=== PATIENT | female | born 1970 | race Two or more races ===

== ENCOUNTER 2016-07-11 06:30 | Emergency (ER) | payer BC, OTHER ==
[2016-07-11 06:48] VITALS: TEMP 97.1; BMI 30.9
[2016-07-11] MEDS ORDERED: methylPREDNISolone NA SUCC 125 MG/2 ML VIAL ONE ×2 (06:53)
[2016-07-11] MEDS ORDERED: methylPREDNISolone NA SUCC 125 MG/2 ML VIAL IVPB ONE (07:05)
--- NOTE | 2016-07-11 07:22 | PDOC ---
History of Present Illness - General Chief Complaint: Allergic Reaction Stated Complaint: ALLERGIC REACTION Time Seen by Provider: 07/11/16 07:02 History Source: Parent(s) Exam Limitations: No Limitations - History of Present Illness Initial Comments: This is a 46 yo F with no PMH who presents with angioedema or upper and lower lips x 5 hr. She states that she woke up at 2 am and noticed swollen L corner or her bottom lip, for which she took PO benadryl and resumed sleep. When she woke up this morning both her lips were diffusely edematous but not painful or itchy. There was no associated rash. She denies dysphagia, difficulty breathing , throat or tongue swelling, wheezing, change in voice, stridor. A few years ago she experienced tongue edema with no clear inciting factor. She has no known allergies and has been tested at an airways control specialist recently. She started using a new facial oil "Tanamu" 2 days ago. She has not eaten any new foods, experienced insect bites, taken new medication used any other new products recently. Her only daily med is an herbal supplement containing milk thistle, globe artichoke, turmeric and choline which shes taken for 2 mo. She denies h/a, dizziness, sob, chest pain, palpitations, n/v, and pain, diarrhea, dysuria. 07/11/16 07:28 07/11/16 08:05 Timing/Duration: 4-6 hours Severity: mild Associated Symptoms: reports: denies symptoms, other (no dysphagia, no tongue edema, no sob, no wheeze). denies: chest pain, cough Aspirin Received prior to arrival: No: no aspirin today, unknown, 81 mg x 1, 81 mg x 2, 81 mg x 3, 81 mg x 4, 325 mg x 1, provided at home, provided by EMS, provided by ED [facility] Contraindications(Core Measure): No: Allergy, Other, Active Blding w/i 24 hrs., Plavix, Receiving Warfarin Beta Don Contraindications(Core Measure): No: Not Prescribed, Allergy, Bradycardia (HR <60bpm), Advanced Heart Block, Pacemaker, Other Beta Don Given by EMS(Core Measure): No Beta Don Taken at Home(Core Measure): No Beta Don Not Indicated at this Time(Core Measure): No Past History - Travel Traveled outside of the country in the last 30 days: No Close contact w/someone who was outside of country & ill: No - Past Medical History Allergies/Adverse Reactions: Allergies Allergy/AdvReac Type Severity Reaction Status Date / Time No Known Allergies Allergy Verified 07/11/16 06:46 Home Medications: Ambulatory Orders Diphenhydramine [Benadryl -] 50 mg PO DAILY #4 capsule 07/11/16 Famotidine [Pepcid] 20 mg PO DAILY #4 tablet 07/11/16 Prednisone [Deltasone -] 40 mg PO DAILY #8 tablet 07/11/16 Anemia: No Asthma: No Cancer: No Cardiac Disorders: No Hx Myocardial Infarction: No CVA: No COPD: No CHF: No DVT: No Dementia: No Diabetes: No Dialysis: No GI Disorders: No Disorders: No HTN: No Hypercholesterolemia: No HIV: No Kidney Stones: No Liver Disease: No Psychiatric Problems: No Suicide Attempt (Hx): No Seizures: No Thyroid Disease: Yes (thyromegaly, normal prior tft) Lung CA: No - Surgical History Cholecystectomy: Yes (2o yrs ago) Orthopedic Surgery: Yes (bunion tye) Other Surgical History: 07/11/16 07:26 c section - Family Disease History Family Disease History: Other: Mother (thyroid disease ) - Psycho/Social/Smoking Cessation Hx Anxiety: No Suicidal Ideation: No Smoking Status: No Smoking History: Never smoked Have you smoked in the past 12 months: No Information on smoking cessation initiated: No Hx Alcohol Use: No Drug/Substance Use Hx: No Substance Use Type: Alcohol (2 drinks/week) Patient Lives Alone: No Lives with/in: spouse/SO Review of Systems - Review of Systems Able to Perform ROS?: Yes Is the patient limited Bruneian proficient: No Constitutional: No: Chills, Fever HEENTM: Yes: Mouth Swelling. No: Blurred Vision, Recent change in vision, Double Vision, Nose Congestion, Tinnitus, Throat Pain, Throat Swelling, Mouth Pain, Dental Problems, Difficulty Swallowing Respiratory: No: Cough, Orthopnea, Shortness of Breath, Stridor, Wheezing Cardiac (ROS): No: Chest Pain, Lightheadedness, Palpitations, Chest Tightness ABD/GI: No: Abdominal Distended, Diarrhea, Vomiting, Abdominal cramping : No: Dysuria Musculoskeletal: No: Joint Pain, Joint Swelling, Muscle Pain Integumentary: No: Bruising, Lumps, Pruritus, Rash Neurological: No: Headache, Numbness, Paresthesia, Tingling, Weakness Endocrine: No: Excessive Sweating, Flushing Hematologic/Lymphatic: No: Easy Bruising *Physical Exam - Vital Signs Last Vital Signs Temp Pulse Resp BP Pulse Ox 97.1 F L 88 20 141/127 100 07/11/16 06:46 07/11/16 06:46 07/11/16 06:46 07/11/16 06:46 07/11/16 06:46 07/11/16 07:38 repeat BP 129/97 - Physical Exam General Appearance: Yes: Nourished. No: Apparent Distress HEENT: positive: GERMAINE, Normal Voice, Symmetrical, Pharynx Normal, Other ( diffusely edematous lips, pharynx and tongue nonedematous and nonerythematous, ) . negative: Scleral Icterus (L), Excessive drooling Neck: positive: Supple. negative: Normal Thyroid (slight thyromegaly, no lumps ) Respiratory/Chest: positive: Lungs Clear. negative: Respiratory Distress, Rapid RR, Stridor, Wheezing Cardiovascular: positive: Regular Rhythm, Regular Rate, S1, S2 Gastrointestinal/Abdominal: positive: Normal Bowel Sounds. negative: Tender, Organomegaly, Tenderness, Mass, Hepatomegaly, Spleenomegaly Lymphatic: negative: Adenopathy, Tenderness Extremity: negative: Pedal Edema, Swelling Integumentary: positive: Normal Color, Dry, Warm, Swelling (lips ). 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 NML intact, Fully Oriented, Normal Mood/Affect ED Treatment Course - LABORATORY CBC & Chemistry Diagram: 07/11/16 08:38 - Medications Given in the ED: ED Medications Discontinued Medications Generic Name Dose Route Start Last Admin Trade Name Freq PRN Reason Stop Dose Admin Diphenhydramine HCl 50 mg 07/11/16 07:05 07/11/16 07:14 Benadryl Injection - IVPB 07/11/16 07:06 50 mg ONCE ONE Administration Methylprednisolone Sodium Succinate 125 mg 07/11/16 07:05 07/11/16 07:05 Solu-Medrol - IVPB 07/11/16 07:06 125 mg ONCE ONE Administration 07/11/16 07:47 pepcid 20 mg once 07/11/16 07:48 07/11/16 09:49 *DC/Admit/Observation/Transfer Diagnosis at time of Disposition: Allergic angioedema Qualifiers: Encounter type: initial encounter Qualified Code(s): T78.3XXA - Angioneurotic edema, initial encounter Diagnosis at time of Disposition: (Ruled Out): Ankle sprain - Discharge Dispostion Disposition: HOME Condition at time of disposition: Good Admit: No - Prescriptions Prescriptions: Diphenhydramine [Benadryl -] 50 mg PO DAILY #4 capsule Prednisone [Deltasone -] 40 mg PO DAILY #8 tablet Famotidine [Pepcid] 20 mg PO DAILY #4 tablet - Referrals Referrals: Dixon Gomez [Primary Care Provider] - - Patient Instructions Additional Instructions: You have experienced a mild allergic reaction. We advise you to discontinue Tanamu oil and your liver supplement as these may be the inciting factors for the reaction. You received adequate medication in the ER. We prescribed you 40 mg of Prednisone daily, 50 mg Benadryl daily and 20 mg of Pepcid daily to take for 4 days. Avoid driving or operating machinery while taking Benadryl as it can make you drowsy. If you notice increased throat or tongue swelling or any difficulty swallowing or breathing, return to ER immediately. Follow up with your primary care doctor within a week. - Post Discharge Activity Work/School Note: Back to Work - Attestations Physician Attestion: 07/11/16 07:57
[2016-07-11] MEDS ORDERED: FAMOTIDINE 20 MG/50 ML IVPB 50 ML IVPB ONE ×2 (07:46→08:05)
--- NOTE | 2016-07-11 08:11 | PDOC ---
Attending Attestation - Resident Resident Name: Kait Mosherudmila - ED Attending Attestation I have performed the following: I have examined & evaluated the patient, The case was reviewed & discussed with the resident, I agree w/resident's findings & plan, Exceptions are as noted - HPI HPI: 07/11/16 08:08 Agree with the resident's HPI as documented in the electronic medical record. - Physicial Exam PE: 07/11/16 08:08 Agree with the resident's physical examination as documented in the electronic medical record. - Medical Decision Making 07/11/16 08:09 46-year-old female presents the emergency department with swelling of her lips since 2 AM with no signs of airway compromise. The patient has started a new vitamin supplement as well as no oils that she is applied to her face. Differential diagnosis includes but is not limited to: ALLERGIC reaction, angioedema. Plan: 1. Steroids 2. H1 and H2 blockade 3. Observe and reevaluate 4. I've advised the patient to stop taking the vitamin supplements as well as the oil 5. Follow-up with ALLERGY and immunology 6. Upon discharge we'll continue steroids and H1 and H2 blockade 7. Will advise the patient to return to the emergency department if her symptoms persist, worsen, or new symptoms arise.
[2016-07-11 09:16] LABS: ALBUMIN 3.5 g/dl (3.4-5.0); ALK PHOS 101 U/L (45-117); ANION GAP 5 (8-16); BILIRUBIN,TOTAL 0.3 mg/dL (0.2-1.0); CALCIUM 8.5 mg/dL (8.5-10.1); CO2 29 mmol/L (21-32); COCKROFT - GAULT 112.4465; CREATININE 0.8 mg/dL (0.55-1.02); GLUCOSE,RANDOM 88 mg/dL (74-106); SGOT/AST 15 U/L (15-37); SGPT/ALT 18 U/L (12-78); TOT PROT 6.7 g/dl (6.4-8.2)
[2016-07-11 11:39] VITALS: BP 121/87; PULSE 81
== END 2016-07-11 11:25 | disposition home or self-care (01) ==
LOC: JER 06:30
PROC: 3E0333Z Introduction of Anti-inflammatory into Peripheral Vein, Percutaneous Approach (ICD-10-PCS; principal; 2016-07-11)
PROC: 3E033GC Introduction of Other Therapeutic Substance into Peripheral Vein, Percutaneous Approach (ICD-10-PCS; 2016-07-11)
DX: T78.3XXA Angioneurotic edema, initial encounter (principal)
CPT/HCPCS: 36415; 80053; 99283-25

== ENCOUNTER 2017-03-22 05:59 | Emergency (ER) | payer BC, OTHER ==
[2017-03-22] MEDS ORDERED: FAMOTIDINE 20 MG/50 ML IVPB 20 MG/50 ML MG IVPB ONE (06:07)
[2017-03-22] MEDS ORDERED: methylPREDNISolone NA SUCC 125 MG/2 ML VIAL IVPUSH ONE (06:07)
[2017-03-22] MEDS ORDERED: methylPREDNISolone NA SUCC 125 MG/2 ML VIAL ONE (06:11)
[2017-03-22 06:18] VITALS: BMI 30.9
--- NOTE | 2017-03-22 07:05 | PDOC ---
History of Present Illness - General Chief Complaint: Allergic Reaction Stated Complaint: ALLERGIC REACTION Time Seen by Provider: 03/22/17 06:05 - History of Present Illness Initial Comments: 03/22/17 07:20 Ms. Worrell is a 46 yo female w/ pmh of previous facial swelling for which she has been allergy tested with no results who presents w/ a 2 hour history of left sided upper lip swelling. She reports that she woke up to these symptoms at about 5am. She denies any new facial creams, foods, medications, stress, or other exacerbating factors. Ms. Worrell says that she has had a "tickle" in her throat 2 days ago that has turned into a sore throat with minor change in voice yesterday but that she otherwise feels like her normal self. The patient denies chest pain, shortness of breath, headache and dizziness. Denies fever, chills, nausea, vomit, diarrhea and constipation. Denies dysuria, frequency, urgency and hematuria. Allergies: NKDA Past History - Past Medical History Allergies/Adverse Reactions: Allergies Allergy/AdvReac Type Severity Reaction Status Date / Time No Known Allergies Allergy Verified 03/22/17 06:18 Home Medications: Ambulatory Orders Prednisone [Deltasone] 40 mg PO DAILY #8 tablet 03/22/17 Anemia: No Asthma: No Cancer: No Cardiac Disorders: No CVA: No COPD: No CHF: No DVT: No Dementia: No Diabetes: No Dialysis: No GI Disorders: No Disorders: No HTN: No Hypercholesterolemia: No Kidney Stones: No Liver Disease: No Psychiatric Problems: No Seizures: No Thyroid Disease: Yes (thyromegaly, normal prior tft) Lung CA: No - Surgical History Abdominal Surgery: Yes Cholecystectomy: Yes (2o yrs ago) Orthopedic Surgery: Yes (bunion tye) - Family Disease History Family Disease History: Other: Mother (thyroid disease ) - Suicide/Smoking/Psychosocial Hx Smoking Status: No Smoking History: Never smoked Have you smoked in the past 12 months: No Information on smoking cessation initiated: No Hx Alcohol Use: No Drug/Substance Use Hx: No Substance Use Type: None Review of Systems - Review of Systems Comments:: 03/22/17 07:40 GENERAL/CONSTITUTIONAL: No fever or chills. No weakness. HEAD, EYES, EARS, NOSE AND THROAT: +Left upper lip swelling as described. No change in vision. No ear pain or discharge. No sore throat. CARDIOVASCULAR: No chest pain or shortness of breath RESPIRATORY: No cough, wheezing, or hemoptysis. GASTROINTESTINAL: No nausea, vomiting, diarrhea or constipation. GENITOURINARY: No dysuria, frequency, or change in urination. MUSCULOSKELETAL: No joint or muscle swelling or pain. No neck or back pain. SKIN: No rash NEUROLOGIC: No headache, vertigo, loss of consciousness, or change in strength/ sensation. ENDOCRINE: No increased thirst. No abnormal weight change HEMATOLOGIC/LYMPHATIC: No anemia, easy bleeding, or history of blood clots. ALLERGIC/IMMUNOLOGIC: No hives or skin allergy. *Physical Exam - Vital Signs Last Vital Signs Temp Pulse Resp BP Pulse Ox 98.4 F 70 18 134/71 99 03/22/17 06:16 03/22/17 06:16 03/22/17 06:35 03/22/17 06:16 03/22/17 06:35 - Physical Exam Comments: 03/22/17 07:41 GENERAL: Awake, alert, and fully oriented, in no acute distress HEAD: No signs of trauma, normocephalic, atraumatic EYES: PERRLA, EOMI, sclera anicteric, conjunctiva clear ENT: +Left upper lip appears swollen without indications of trauma, petechia, or rash. Auricles normal inspection, hearing grossly normal, nares patent, oropharynx clear without exudates. Moist mucosa. No signs of throat swelling or airway collapse. NECK: Normal ROM, supple, no lymphadenopathy, JVD, or masses LUNGS: No distress, speaks full sentences, clear to auscultation bilaterally HEART: Regular rate and rhythm, normal S1 and S2, no murmurs, rubs or gallops, peripheral pulses normal and equal bilaterally. ABDOMEN: Soft, nontender, normoactive bowel sounds. No guarding, no rebound. No masses EXTREMITIES: Normal inspection, Normal range of motion, no edema. No clubbing or cyanosis. NEUROLOGICAL: Cranial nerves II through XII grossly intact. Normal speech, normal gait, no focal sensorimotor deficits SKIN: Warm, Dry, normal turgor, no rashes or lesions noted. ED Treatment Course - Medications Given in the ED: ED Medications Discontinued Medications Generic Name Dose Route Start Last Admin Trade Name Freq PRN Reason Stop Dose Admin Diphenhydramine HCl 25 mg 03/22/17 06:07 03/22/17 06:28 Benadryl Injection - IVPUSH 03/22/17 06:08 25 mg ONCE ONE Administration Famotidine/Sodium Chloride 20 mg in 50 mls @ 100 mls/hr 03/22/17 06:07 06:28 Pepcid 20 Mg Premixed Ivpb - IVPB 03/22/17 06:36 100 mls/hr ONCE ONE Administration Methylprednisolone Sodium Succinate 125 mg 03/22/17 06:07 03/22/17 06:28 Solu-Medrol - IVPUSH 03/22/17 06:08 125 mg ONCE ONE Administration Medical Decision Making - Medical Decision Making 03/22/17 07:43 Ms. Worrell is a 46 yo female w/ pmh of prior facial swelling as described who presents w/ new onset left upper lip swelling. Benadryl/pepcid/solumedrol given for symptomatic relief by previous team. Will observe patient for progression of reaction and discharge when sure of respiratory status. 03/22/17 08:03 Patient complaining of additional lip itching. Epinephrin 0.3mg given IM for further symptomatic relief. 03/22/17 10:34 Lip swelling decreased; patient has no further complaints. Discharging to home with Immunology / allergy follow-up information. Patient will follow-up outpatient. Prednisone 4 day course sent to patient's pharmacy. *DC/Admit/Observation/Transfer Diagnosis at time of Disposition: Lip swelling - Discharge Dispostion Disposition: HOME - Referrals Referrals: Wilfredo Gomez MD [Primary Care Provider] - Jennifer Ruiz MD [Staff Physician] - - Patient Instructions Printed Discharge Instructions: DI for Angioedema Additional Instructions: Please return to ER if any return of swelling, difficulty breathing, fever, chills, or other concerning symptoms. Follow-up with [facility] at number provided for further evaluation and testing. - Post Discharge Activity Forms/Work/School Notes: Back to Work
--- NOTE | 2017-03-22 07:40 | PDOC ---
Attending Attestation - Resident Resident Name: Tony Ann - ED Attending Attestation I have performed the following: I have examined & evaluated the patient, The case was reviewed & discussed with the resident, I agree w/resident's findings & plan, Exceptions are as noted - HPI HPI: 03/22/17 07:20 46yF PMx hx of unkonwn facial swelling since this morning upon awakening. Pt has had this before and is unclear what the cause is, she has had follow up with allergy doctors without a diagnosis. This is her 3rd episode. Pt denies any new meds, lotions, soaps or other exposures. pt denies any sob, changes in voice, difficulty swallowing, n/v, chest pain, difficulty breathing, coughing. On exam the pt appears well, no distress +swelling in L upper lip posterior pharynx is clear and symmetric and widely patent voice is normal no stridor pulm exam cta w/o wheezing abd soft nontender unclera cause of her angioedema pt got steroids/benadryl given epi as she was complining of tingling which precedes her swelling in the margins of her lip will observe here for another 3 hrs if worse will likely observe 03/22/17 10:29 pt states she feels better airway patent swellnig slightly decreased no stridor, wheezing or signs of distress will dc at 11am (~6 hrs after onst) will have pt fu with immunology for further workup will give rx of prednison - Physicial Exam PE: 03/24/17 10:52 see above - Medical Decision Making 03/24/17 10:52 see above
[2017-03-22 07:48] VITALS: TEMP 98.2
[2017-03-22] MEDS ORDERED: EPINEPHrine/PF 1 MG/1 ML (1:1,000) AMPULE ONE (07:53)
[2017-03-22] MEDS ORDERED: EPINEPHrine 1:1,000 - 30 MG/30 ML VIAL IM ONE (08:00)
[2017-03-22 10:45] VITALS: BP 129/76; PULSE 78
== END 2017-03-22 10:45 | disposition home or self-care (01) ==
LOC: JER 05:59
PROC: 3E023GC Introduction of Other Therapeutic Substance into Muscle, Percutaneous Approach (ICD-10-PCS; principal; 2017-03-22)
PROC: 3E033GC Introduction of Other Therapeutic Substance into Peripheral Vein, Percutaneous Approach (ICD-10-PCS; 2017-03-22)
PROC: 3E0333Z Introduction of Anti-inflammatory into Peripheral Vein, Percutaneous Approach (ICD-10-PCS; 2017-03-22)
DX: R60.0 Localized edema (principal); T78.3XXA Angioneurotic edema, initial encounter
CPT/HCPCS: 99284-25

== ENCOUNTER 2018-06-16 01:51 | Observation (INO) | payer BC, OTHER ==
[2018-06-16] MEDS ORDERED: EPINEPHrine 1:1,000 1 MG/1 ML - 30ML VIAL (INJECTION) SQ ONE ×3 (01:57→09:06)
[2018-06-16] MEDS ORDERED: methylPREDNISolone NA SUCC 125 MG/2 ML VIAL ONE ×2 (01:58)
[2018-06-16] MEDS ORDERED: methylPREDNISolone NA SUCC 125 MG/2 ML VIAL IVPUSH ONE (02:01)
--- NOTE | 2018-06-16 02:02 | PDOC ---
History of Present Illness - General Stated Complaint: ALLERGIC REACTION Time Seen by Provider: 06/16/18 01:57 - History of Present Illness Initial Comments: 06/16/18 02:37 The patient is a 48 year old female with no significant PMH who presents for evaluation of facial swelling. The patient notes that she developed lip swelling and a "scratchy" throat earlier this evening for which she took 2 benadryl. She states that she has had similar reactions in the past and has had extensive allergy testing with being noted to only be allergic to PPD. She noted that the facial swelling was worsening despite taking the benadryl prompting her presentation to the ED for further evaluation. She denies any new foods, medications, or other exposures and otherwise denies fevers, chills, SOB, chest pain, nausea, vomiting, abdominal pain, or changes with urination or bowel movements. Past History - Past Medical History Allergies/Adverse Reactions: Allergies Allergy/AdvReac Type Severity Reaction Status Date / Time No Known Allergies Allergy Verified 06/16/18 02:05 Home Medications: Ambulatory Orders NK [No Known Home Medication] 06/16/18 Anemia: No Asthma: No Cancer: No Cardiac Disorders: No CVA: No COPD: No CHF: No DVT: No Dementia: No Diabetes: No Dialysis: No GI Disorders: No Disorders: No HTN: No Hypercholesterolemia: No Kidney Stones: No Liver Disease: No Psychiatric Problems: No Seizures: No Thyroid Disease: Yes (thyromegaly, normal prior tft) Lung CA: No - Surgical History Abdominal Surgery: Yes Cholecystectomy: Yes (2o yrs ago) Orthopedic Surgery: Yes (bunion tye) - Family Disease History Family Disease History: Other: Mother (thyroid disease ) - Suicide/Smoking/Psychosocial Hx Smoking Status: No Smoking History: Never smoked Have you smoked in the past 12 months: No Hx Alcohol Use: No Drug/Substance Use Hx: No Substance Use Type: None Review of Systems - Review of Systems Comments:: 06/16/18 02:39 Constitutional: No fevers, chills, fatigue, malaise HEENT: Lip swelling and Itchy throat. No Rhinorrhea, nasal congestion, visual changes Cardiovascular: No chest pain, syncope, palpitations, lightheadedness Respiratory: No Cough, SOB, Hemoptysis, Gastrointestinal: No Abdominal pain, Nausea, Vomiting, Constipation, Diarrhea, Melena Genitourinary: No Dysuria, Frequency, Urgency, Hesitancy, Hematuria, Flank pain Musculoskeletal: No Myalgia, arthralgia Skin: No rashes, itching, bruising, pallor Neurologic: No Headache, Dizziness, Numbness, Weakness, or Tingling Psychiatric: No Hallucinations. No SI or HI *Physical Exam - Physical Exam Comments: 06/16/18 02:40 General Appearance: Nourished. No Apparent Distress HEENT: EOMI, GERMAINE. Upper lip edema noted. Edematous uvula on exam. No Pharyngeal Erythema, Tonsillar Exudate, Tonsillar Erythema Neck: No Cervical Lymphadenopathy Respiratory/Chest: Lungs Clear, Normal Breath Sounds. No Crackles, Rales, Rhonchi, Wheezing Cardiovascular: Regular Rhythm, Regular Rate. No Murmur, Gallops, Rubs Gastrointestinal/Abdominal: Normal Bowel Sounds, Soft. No Guarding, Rebound, Tenderness Musculoskeletal: No CVA Tenderness Extremity: Normal Capillary Refill Integumentary: Normal Color, Dry, Warm Neurologic: Fully Oriented, Alert, Normal Mood/Affect, Normal Response, Medical Decision Making - Medical Decision Making 06/16/18 02:41 The patient is a 48 year old female with no significant PMH who presents for evaluation of facial swelling. Given the patient's history and physical exam, it is likely the patient's symptoms are due to an allergic reaction. Given her symptoms, we will treat with epinephrine, benadryl, solu-medrol, and iv fluids and observe the patient here in the ED. We do not believe further lab work up is needed at this time. We will continue to monitor and reassess while here in the ED. 06/16/18 05:21 The patient reported worsening symptoms and required another dose of epinephrine. Given the patient's persistent symptoms requiring multiple doses of epinephrine, we believe she requires observation admission for further monitoring and management. We discussed the case with the admitting team who accepted the patient for admission. *DC/Admit/Observation/Transfer Diagnosis at time of Disposition: Lip swelling Allergic angioedema Qualifiers: Encounter type: initial encounter Qualified Code(s): T78.3XXA - Angioneurotic edema, initial encounter - Discharge Dispostion Condition at time of disposition: Stable Decision to Admit order: Yes - Referrals - Patient Instructions - Post Discharge Activity
[2018-06-16] MEDS ORDERED: EPINEPHrine/PF 1 MG/1 ML (1:1,000) AMPULE ONE ×2 (02:05→03:17)
--- NOTE | 2018-06-16 02:09 | PDOC ---
Attending Attestation - Resident Resident Name: Steve Morin - ED Attending Attestation I have performed the following: I have examined & evaluated the patient, The case was reviewed & discussed with the resident, I agree w/resident's findings & plan, Exceptions are as noted - HPI HPI: 06/16/18 06:29 48F here with sudden onset of facial swelling and throat scratchiness. Denies any novel exposures. - Physicial Exam PE: 06/16/18 06:30 Significant lips and uvula, minimal tongue swelling No rash, no stridor, no vocal changes Lungs CTAB, normal wob - Medical Decision Making 06/16/18 06:32 allergic reaction vs angioedema epi, steroids, benadryl re-eval symptoms recurring on re-eval re-dose admit for observation
[2018-06-16] MEDS ORDERED: SODIUM CHLORIDE 1,000 ML IV STA (07:01)
[2018-06-16] MEDS ORDERED: SODIUM CHLORIDE 1,000 ML IV SCH (10:15)
[2018-06-16] MEDS ORDERED: diphenhydrAMINE HCL 25 MG CAPSULE (FP) PO ONE (10:25)
[2018-06-16] MEDS ORDERED: methylPREDNISolone NA SUCC 40 MG/1 ML VIAL ONE (10:26)
[2018-06-16] MEDS: diphenhydrAMINE HCL 25 MG CAPSULE (FP) PO SCH ×2 (10:31→22:01)
[2018-06-16] MEDS: methylPREDNISolone NA SUCC 40 MG/1 ML VIAL IVPUSH SCH ×2 (10:31→17:48)
[2018-06-16 11:29] LABS: BASO % 0.1 % (0-2.0); HEMOGLOBIN 12.8 GM/dL (10.7-15.3); LYMPH % 8.2 % (8-40); MCH 26.6 pg (25.7-33.7); MCHC 32.1 g/dl (32.0-36.0); MEAN CELL VOLUME 83.1 fl (80-96); MEAN PLT VOLUME 8.3 fl (7.5-11.1); MONO % 0.4 % (3.8-10.2); NEUT % 91.3 % (42.8-82.8); PLATELET COUNT 241 K/MM3 (134-434); RBC 4.82 M/mm3 (3.60-5.2); RDW 14.9 % (11.6-15.6); WHITE BLOOD COUNT 5.5 K/mm3 (4.0-10.0)
[2018-06-16 12:11] LABS: ALBUMIN 3.3 g/dl (3.4-5.0); BILIRUBIN,TOTAL 0.8 mg/dL (0.2-1); CALCIUM 8.6 mg/dL (8.5-10.1); CREATININE 0.7 mg/dL (0.55-1.3); POTASSIUM 4.1 mmol/L (3.5-5.1); TOT PROT 6.7 g/dl (6.4-8.2)
[2018-06-16 14:29] LABS: ANISOCYTOSIS 0; MACROCYTOSIS 0; PLATELET ESTIMATE NORMAL
--- NOTE | 2018-06-16 15:32 | HP ---
DATE OF ADMISSION: 06/16/2018 HISTORY: The patient is a 48-year-old female with no significant past medical history who presented to the emergency room for evaluation of facial swelling. As per the patient, she noticed lip swelling and scratchy throat earlier yesterday evening for which she took 2 Benadryl. As per the patient, there was no relief. The patient had a similar episode in the past and had extensive allergy testing and being noted to be allergic to PPD. Because of the facial swelling worsening after taking the Benadryl, this prompting her to come to the ER for further evaluation. The patient denies any fever, shortness of breath, palpitations, dizziness, chest pain, abdominal pain, nausea, vomiting. PAST MEDICAL HISTORY: Nothing significant. ALLERGIES: No known drug allergies. MEDICATIONS: The patient is not taking any medication. PAST SURGICAL HISTORY: The patient had a cholecystectomy 10 years ago. FAMILY HISTORY: Mother has thyroid disease. PERSONAL HISTORY: No history of smoking, alcohol, or drugs. REVIEW OF SYSTEMS: Constitutional: The patient has no fever, no chills, no fatigue. HEENT: Lip swelling and itchy throat. No nasal congestion. No visual changes. Cardiovascular: No chest pain, no syncope, no palpitations, no lightheadedness. Respiratory: No shortness of breath, no hemoptysis. Gastrointestinal: No nausea, no vomiting. Genitourinary: Nothing significant. Skin: No rash, itching, or bruising. Neurologic: No headache, no dizziness, no numbness, weakness, or tingling. No visual disturbance. Psychiatric: No hallucination. PHYSICAL EXAMINATION: Vital Signs: Temperature 97.8, pulse rate 66, blood pressure at the time of visit to the ER it is 139/112, respirations 18, saturation 99%. General: Patient is alert, awake, oriented in no apparent distress when came to the emergency room. The patient is well nourished in no apparent distress. HEENT: Upper lip edema noted. Edematous uvula. On examination, no pharyngeal erythema. No tonsillar exudate. Neck: No cervical lymphadenopathy. No JVD. Respiratory: Lungs clear. No rhonchi. Cardiovascular: First and 2nd sound normal. Gastrointestinal: Abdomen soft. No tenderness. No distention. Bowel sounds present. Extremities: No edema. Skin: Normal. Neurologic: Patient fully oriented, alert; normal mood and affect. No apparent motor or sensory deficit. Reflexes normal. LABORATORIES: WBC 5.5, hemoglobin 12.8, hematocrit 40, platelets 241, neutrophil 91.3. Chemistry: Sodium 139, potassium 4.1, chloride 109, bicarbonate 24, BUN 11, creatinine 0.7, calcium 8.6. AST normal, ALT normal. In the emergency room, the patient was given epinephrine injection 2 times, Solu-Medrol 125 mg IV, Benadryl, IV fluid. After the first epinephrine injection, the patient again started noticing swelling of the lips, so one more dose repeated. Because of the persistent symptom recurring and repeated dose of epinephrine, patient kept here for observation for further monitoring other symptoms and management of the symptoms. The patient was stable. ADMITTING DIAGNOSES: 1. Lip swelling. 2. Allergic reaction. 3. Allergic angioedema. DISPOSITION: Patient stable on the floor. Admitted. Recommend to continue the Solu-Medrol 40 mg IV 8 hourly and Benadryl and IV fluid. Immunology consult. Observe the patient for any new symptoms. CHHAYA NICOLE M.D. [id number]
[2018-06-16 16:30] VITALS: BMI 34.9
[2018-06-17] MEDS: methylPREDNISolone NA SUCC 40 MG/1 ML VIAL IVPUSH SCH ×2 (03:05→10:06)
[2018-06-17] MEDS: diphenhydrAMINE HCL 25 MG CAPSULE (FP) PO SCH (10:06)
--- NOTE | 2018-06-17 10:59 | PN ---
Progress Note, Physician Chief Complaint: Pt lying in bed,no complaints today Pt feels better No sob,lip swelling improved allergy immunolgy cosult pending Pt agreed to f/u as Outpatient as per she is symptom free now d/c planning - Current Medication List Current Medications: Active Medications Diphenhydramine HCl (Benadryl -) 25 mg PO BID [facility] Last Admin: 06/17/18 10:06 Dose: 25 mg Sodium Chloride (Normal Saline -) 1,000 mls @ 100 mls/hr IV ASDIR KARMA Last Admin: 06/16/18 10:31 Dose: 100 mls/hr Methylprednisolone Sodium Succinate (Solu-Medrol -) 40 mg IVPUSH Q8H-IV KARMA Last Admin: 06/17/18 10:06 Dose: 40 mg - Objective Vital Signs: Vital Signs Temperature 97.8 F 06/17/18 06:00 Pulse Rate 62 06/17/18 06:00 Respiratory Rate 18 06/17/18 06:00 Blood Pressure 115/76 06/17/18 06:00 O2 Sat by Pulse Oximetry (%) 96 06/17/18 05:00 Constitutional: Yes: No Distress Eyes: Yes: Conjunctiva Clear HENT: Yes: Normocephalic Neck: Yes: Supple Cardiovascular: Yes: Regular Rate and Rhythm Respiratory: Yes: Regular, CTA Bilaterally Gastrointestinal: Yes: Normal Bowel Sounds, Soft Musculoskeletal: Yes: WNL Extremities: Yes: WNL Edema: No Peripheral Pulses WNL: Yes Integumentary: Yes: WNL Neurological: Yes: WNL, Alert ...Motor Strength: WNL Psychiatric: Yes: WNL, Alert Labs: CBC, BMP 06/16/18 11:17 06/16/18 11:17 Assessment/Plan allergic reaction,unknown cause r/o angioedema Lip swelling PLAN f/u with allergy immunolgy physcian continue steroid F/u wih pmd in One week D/c home
[2018-06-17 12:54] VITALS: BP 142/85; PULSE 78; TEMP 98.2
--- NOTE | 2018-06-19 09:23 | DS ---
DATE OF ADMISSION: 06/16/2018 DATE OF DICTATION: 06/17/2018 DATE OF DISCHARGE: Patient is a 48-year-old female admitted with facial swelling, lip swelling, and irritation of the throat noticed. Patient has no significant past medical history, not taking any medication, not on any drugs. Patient did not eat any normal food. Patient took Benadryl at home. As there was no relief, came to the emergency room. In the emergency room, vital signs stable. On examination, the patient with significant swelling of the lips. No tongue swelling. Chest clear. No rhonchi. No wheezing. The rest of the review of systems is normal. Abdomen soft and no tenderness, no distention. Bowel sounds present. Extremities: No edema. Saturation was 98%. Patient was given epinephrine and Solu-Medrol IV 125 mg and Benadryl, IV fluid in the emergency room. Oxygen was given. After the treatment, the patient was stable. Labs were normal. CBC, CMP normal. Patient observed for 24 hours with close monitoring of the vital signs, respiratory distress. Patient stable on the floor. Consult for allergy/immunology made. Patient observed over 24 hours, symptom free, and patient discharged home on oral prednisone. Recommend to see the allergy/immunology as an outpatient, as patient was asymptomatic after the IV steroid. Patient was stable on the floor. Patient discharged home in stable condition on oral prednisone. I recommend to see the primary and allergy/immunology physician as an outpatient. CHHAYA NICOLE M.D. [id number]
== END 2018-06-17 13:54 | disposition home or self-care (01) ==
LOC: JER 01:51 → JERBED 04:23 → J8W 15:02
PROVIDERS: ADMIT Family Medicine; ATTEND Family Medicine
PROC: 3E0333Z Introduction of Anti-inflammatory into Peripheral Vein, Percutaneous Approach (ICD-10-PCS; principal; 2018-06-16)
PROC: 3E033GC Introduction of Other Therapeutic Substance into Peripheral Vein, Percutaneous Approach (ICD-10-PCS; 2018-06-16)
PROC: 3E0337Z Introduction of Electrolytic and Water Balance Substance into Peripheral Vein, Percutaneous Approach (ICD-10-PCS; 2018-06-16)
PROC: 3E013GC Introduction of Other Therapeutic Substance into Subcutaneous Tissue, Percutaneous Approach (ICD-10-PCS; 2018-06-16)
DX: T78.3XXA Angioneurotic edema, initial encounter (principal); R22.0 Localized swelling, mass and lump, head
CPT/HCPCS: 36415; 80053; 85025; 99283-25; G0378; J7030

== ENCOUNTER 2020-04-27 03:57 | Emergency (ER) | payer BC, OTHER ==
[2020-04-27 04:22] VITALS: BMI 34.5
[2020-04-27] MEDS ORDERED: SODIUM CHLORIDE 0.9% 500 ML INFUS.BAG IV ONE (04:28)
[2020-04-27 05:16] LABS: BASO % 0.5 % (0-2.0); EOS % 2.7 % (0-4.5); HEMATOCRIT 32.6 % (32.4-45.2); HEMOGLOBIN 10.9 GM/dL (10.7-15.3); LYMPH % 28.2 % (8-40); MCH 26.7 pg (25.7-33.7); MCHC 33.3 g/dl (32.0-36.0); MEAN CELL VOLUME 80.1 fl (80-96); MEAN PLT VOLUME 8.6 fl (7.5-11.1); MONO % 6.4 % (3.8-10.2); NEUT % 62.2 % (42.8-82.8); PLATELET COUNT 282 K/MM3 (134-434); RBC 4.07 M/mm3 (3.60-5.2); RDW 16.1 % (11.6-15.6); WHITE BLOOD COUNT 7.5 K/mm3 (4.0-10.0)
[2020-04-27 05:31] LABS: POTASSIUM 3.8 mmol/L (3.5-5.1)
[2020-04-27 05:33] LABS: ALBUMIN 3.4 g/dl (3.4-5.0); BLOOD UREA NITROGEN 19.5 mg/dL (7-18); CALCIUM 8.9 mg/dL (8.5-10.1)
[2020-04-27 05:36] LABS: CREATININE 0.9 mg/dL (0.55-1.3)
[2020-04-27 05:38] LABS: BILIRUBIN,TOTAL 0.2 mg/dL (0.2-1); TOT PROT 6.5 g/dl (6.4-8.2)
[2020-04-27 07:16] VITALS: TEMP 97.6
[2020-04-27 10:03] LABS: EPI CELLS >36 /uL (0-25.1); HYALINE CASTS 4 /uL (0-3.1); URINE APPEARANCE CLOUDY; URINE BACTERIA 48 /uL (0-1359); URINE BILIRUBIN NEGATIVE (NEGATIVE); URINE COLOR YELLOW; URINE GLUCOSE (UA) NEGATIVE (NEGATIVE); URINE KETONE TRACE (NEGATIVE); URINE LEUK ESTERASE TRACE (NEGATIVE); URINE NITRITE NEGATIVE (NEGATIVE); URINE PROTEIN 2+ (NEGATIVE); URINE RBC 7966 /uL (0-23.9); URINE WBC 57 /uL (0-25.8)
[2020-04-27 10:18] VITALS: BP 112/73; PULSE 72
== END 2020-04-27 10:00 | disposition home or self-care (01) ==
LOC: JER 03:57
DX: N93.8 Other specified abnormal uterine and vaginal bleeding (principal)
CPT/HCPCS: 36415; 76830-TC; 80053; 81003; 84703; 85025; 86850; 86900; 86901; 99284-25

== ENCOUNTER 2022-05-30 13:52 | Inpatient (IN) | payer BC, OTHER ==
[2022-05-30 13:58] VITALS: BMI 28.1
[2022-05-30 15:06] LABS: BASO % 0.4 % (0-2.0); EOS % 1.5 % (0-4.5); HEMATOCRIT 16.8 % (32.4-45.2); LYMPH % 20.8 % (8-40); MCH 24.7 pg (25.7-33.7); MCHC 33.3 g/dl (32.0-36.0); MEAN CELL VOLUME 74.2 fl (80-96); MEAN PLT VOLUME 8.1 fl (7.5-11.1); MONO % 5.5 % (3.8-10.2); NEUT % 71.8 % (42.8-82.8); PLATELET COUNT 348 10^3/uL (134-434); RBC 2.26 M/mm3 (3.60-5.2); RDW 16.2 % (11.6-15.6); WHITE BLOOD COUNT 9.2 K/mm3 (4.0-10.0)
[2022-05-30 15:14] LABS: INR 0.97 (0.83-1.09); PROTHROMBIN TIME (PATIENT) 11.3 SEC (9.7-13.0)
[2022-05-30 15:16] LABS: ACTIVATED PTT 29.4 SECONDS (25.2-36.5)
[2022-05-30 15:22] LABS: HEMOGLOBIN 5.6 GM/dL (10.7-15.3)
[2022-05-30 15:25] LABS: POTASSIUM 3.8 mmol/L (3.5-5.1)
[2022-05-30 15:27] LABS: CALCIUM 8.5 mg/dL (8.5-10.1)
[2022-05-30 15:28] LABS: ALBUMIN 2.8 g/dl (3.4-5.0); BLOOD UREA NITROGEN 12.1 mg/dL (7-18); MAGNESIUM 1.7 mg/dL (1.8-2.4)
[2022-05-30 15:31] LABS: CREATININE 0.7 mg/dL (0.55-1.3)
[2022-05-30 15:32] LABS: BILIRUBIN,TOTAL 0.1 mg/dL (0.2-1); TOT PROT 5.9 g/dl (6.4-8.2)
[2022-05-30 16:11] LABS: EPI CELLS 17 /uL (0-25.1); HYALINE CASTS 1 /uL (0-3.1); URINE APPEARANCE CLEAR; URINE BACTERIA 3 /uL (0-1359); URINE BILIRUBIN NEGATIVE (NEGATIVE); URINE COLOR YELLOW; URINE GLUCOSE (UA) NEGATIVE (NEGATIVE); URINE KETONE NEGATIVE (NEGATIVE); URINE LEUK ESTERASE NEGATIVE (NEGATIVE); URINE NITRITE NEGATIVE (NEGATIVE); URINE PROTEIN NEGATIVE (NEGATIVE); URINE RBC 44 /uL (0-23.9); URINE WBC 12 /uL (0-25.8)
[2022-05-31] MEDS: FERROUS SO4 325 MG TABLET (FP) PO SCH (09:20)
[2022-05-31 11:42] LABS: BASO % 0.6 % (0-2.0); EOS % 2.1 % (0-4.5); HEMATOCRIT 18.9 % (32.4-45.2); MCH 26.5 pg (25.7-33.7); MCHC 35.3 g/dl (32.0-36.0); MEAN CELL VOLUME 74.9 fl (80-96); MEAN PLT VOLUME 8.8 fl (7.5-11.1); MONO % 6.3 % (3.8-10.2); PLATELET COUNT 214 10^3/uL (134-434); RBC 2.53 M/mm3 (3.60-5.2); RDW 15.5 % (11.6-15.6); WHITE BLOOD COUNT 5.5 K/mm3 (4.0-10.0)
[2022-05-31 11:45] LABS: INR 0.97 (0.83-1.09); PROTHROMBIN TIME (PATIENT) 11.3 SEC (9.7-13.0)
[2022-05-31 11:47] LABS: ACTIVATED PTT 29.5 SECONDS (25.2-36.5)
[2022-05-31 11:56] LABS: POTASSIUM 3.3 mmol/L (3.5-5.1)
[2022-05-31 11:57] LABS: HEMOGLOBIN 6.7 GM/dL (10.7-15.3)
[2022-05-31 12:14] LABS: ALBUMIN 2.6 g/dl (3.4-5.0); CALCIUM 8.2 mg/dL (8.5-10.1)
[2022-05-31 12:15] LABS: BLOOD UREA NITROGEN 8.6 mg/dL (7-18); MAGNESIUM 2.2 mg/dL (1.8-2.4)
[2022-05-31 12:16] LABS: CREATININE 0.7 mg/dL (0.55-1.3)
[2022-05-31 12:17] LABS: BILIRUBIN,TOTAL 0.2 mg/dL (0.2-1); TOT PROT 5.2 g/dl (6.4-8.2)
[2022-05-31 12:18] LABS: PHOSPHOROUS 2.9 mg/dL (2.5-4.9)
[2022-05-31] MEDS ORDERED: POTASSIUM CHLORIDE TABS 20 MEQ TABLET.ER (FP) PO ONE (12:45)
[2022-05-31] MEDS ORDERED: POTASSIUM CHLORIDE TABS 10 MEQ TABLET.ER (FP) PO ONE (12:45)
[2022-05-31 15:47] VITALS: RESP 18
[2022-05-31 19:16] LABS: BASO % 0.6 % (0-2.0); EOS % 1.7 % (0-4.5); HEMATOCRIT 19.8 % (32.4-45.2); LYMPH % 34.8 % (8-40); MCH 26.4 pg (25.7-33.7); MCHC 35.2 g/dl (32.0-36.0); MEAN PLT VOLUME 8.5 fl (7.5-11.1); MONO % 7.5 % (3.8-10.2); NEUT % 55.4 % (42.8-82.8); PLATELET COUNT 246 10^3/uL (134-434); RBC 2.64 M/mm3 (3.60-5.2); RDW 15.6 % (11.6-15.6); WHITE BLOOD COUNT 6.5 K/mm3 (4.0-10.0)
[2022-05-31 21:16] LABS: SICKLE CELL SCREEN NEGATIVE (NEGATIVE)
[2022-06-01] MEDS ORDERED: LACTATED RINGERS SOLUTION 1,000 ML/1,000 ML INFUS.BAG IV STA (06:11)
[2022-06-01] MEDS ORDERED: ACETAMINOPHEN 325 MG TABLET (FP) PO PRN (06:22)
[2022-06-01] MEDS: FERROUS SO4 325 MG TABLET (FP) PO SCH (08:14)
[2022-06-01 10:17] LABS: POTASSIUM 3.6 mmol/L (3.5-5.1)
[2022-06-01 10:20] LABS: ALBUMIN 2.4 g/dl (3.4-5.0); CALCIUM 7.8 mg/dL (8.5-10.1)
[2022-06-01 10:21] LABS: BLOOD UREA NITROGEN 11.4 mg/dL (7-18)
[2022-06-01 10:22] LABS: BASO % 0.5 % (0-2.0); EOS % 0.3 % (0-4.5); HEMATOCRIT 15.5 % (32.4-45.2); LYMPH % 15.4 % (8-40); MCH 26.4 pg (25.7-33.7); MCHC 34.2 g/dl (32.0-36.0); MEAN PLT VOLUME 8.1 fl (7.5-11.1); MONO % 4.9 % (3.8-10.2); NEUT % 78.9 % (42.8-82.8); PLATELET COUNT 273 10^3/uL (134-434); RBC 2.02 M/mm3 (3.60-5.2); RDW 16.2 % (11.6-15.6); WHITE BLOOD COUNT 8.8 K/mm3 (4.0-10.0)
[2022-06-01 10:24] LABS: CREATININE 0.7 mg/dL (0.55-1.3)
[2022-06-01 10:25] LABS: BILIRUBIN,TOTAL 0.3 mg/dL (0.2-1); TOT PROT 4.9 g/dl (6.4-8.2)
[2022-06-01 10:29] LABS: HEMOGLOBIN 5.3 GM/dL (10.7-15.3)
[2022-06-01] MEDS: LACTATED RINGERS SOLUTION 1,000 ML/1,000 ML INFUS.BAG IV SCH (10:50)
[2022-06-01] MEDS: medroxyPROGESTERone ACET 5 MG TABLET PO SCH ×2 (12:46→21:35)
[2022-06-01 16:06] LABS: EOS % 0.8 % (0-4.5); HEMATOCRIT 17.9 % (32.4-45.2); LYMPH % 18.9 % (8-40); MCH 26.9 pg (25.7-33.7); MCHC 34.1 g/dl (32.0-36.0); MEAN PLT VOLUME 7.7 fl (7.5-11.1); NEUT % 73.3 % (42.8-82.8); PLATELET COUNT 237 10^3/uL (134-434); RBC 2.27 M/mm3 (3.60-5.2); RDW 16.7 % (11.6-15.6); WHITE BLOOD COUNT 7.4 K/mm3 (4.0-10.0)
[2022-06-01 16:10] LABS: HEMOGLOBIN 6.1 GM/dL (10.7-15.3)
[2022-06-01] MEDS ORDERED: MELATONIN 5 MG TABLETS PO PRN (22:58)
[2022-06-01 23:21] LABS: HEMATOCRIT 21.4 % (32.4-45.2); HEMOGLOBIN 7.3 GM/dL (10.7-15.3); MCH 27.7 pg (25.7-33.7); MCHC 34.4 g/dl (32.0-36.0); MEAN CELL VOLUME 80.6 fl (80-96); MEAN PLT VOLUME 7.8 fl (7.5-11.1); PLATELET COUNT 234 10^3/uL (134-434); RBC 2.65 M/mm3 (3.60-5.2); RDW 16.4 % (11.6-15.6); WHITE BLOOD COUNT 7.5 K/mm3 (4.0-10.0)
[2022-06-02] MEDS: LACTATED RINGERS SOLUTION 1,000 ML/1,000 ML INFUS.BAG IV SCH (03:43)
[2022-06-02 04:00] VITALS: TEMP 98.6
[2022-06-02] MEDS: FERROUS SO4 325 MG TABLET (FP) PO SCH (08:16)
[2022-06-02] MEDS: medroxyPROGESTERone ACET 5 MG TABLET PO SCH (09:28)
[2022-06-02 10:08] LABS: BASO % 0.8 % (0-2.0); EOS % 2.5 % (0-4.5); HEMATOCRIT 20.1 % (32.4-45.2); HEMOGLOBIN 7.1 GM/dL (10.7-15.3); LYMPH % 23.1 % (8-40); MCH 28.4 pg (25.7-33.7); MCHC 35.4 g/dl (32.0-36.0); MEAN CELL VOLUME 80.3 fl (80-96); MEAN PLT VOLUME 8.5 fl (7.5-11.1); MONO % 5.6 % (3.8-10.2); PLATELET COUNT 226 10^3/uL (134-434); RDW 15.8 % (11.6-15.6); WHITE BLOOD COUNT 6.1 K/mm3 (4.0-10.0)
[2022-06-02 10:25] LABS: POTASSIUM 3.6 mmol/L (3.5-5.1)
[2022-06-02 10:31] LABS: CALCIUM 8.2 mg/dL (8.5-10.1)
[2022-06-02 10:32] LABS: BLOOD UREA NITROGEN 4.5 mg/dL (7-18); MAGNESIUM 2.1 mg/dL (1.8-2.4)
[2022-06-02 10:35] LABS: CREATININE 0.6 mg/dL (0.55-1.3); PHOSPHOROUS 3.1 mg/dL (2.5-4.9)
[2022-06-02 10:58] VITALS: BP 95/46; PULSE 69
== END 2022-06-02 14:40 | disposition home or self-care (01) | DRG 812 ==
LOC: JER 13:52 → JERBED 16:45 → J5S 21:30 → OBSVTOIN 06-01 14:25
PROVIDERS: ADMIT Internal Medicine; ATTEND Internal Medicine
PROC: 30233N1 Transfusion of Nonautologous Red Blood Cells into Peripheral Vein, Percutaneous Approach (ICD-10-PCS; principal; 2022-06-01)
DX: D64.9 Anemia, unspecified (principal); N92.0 Excessive and frequent menstruation with regular cycle
CPT/HCPCS: 36415; 36430; 71045-TC-FY; 76830-TC; 80048; 80053; 81003; 82272; 83021; 83735; 84100; 84484; 84702; 84703; 85025; 85027; 85247; 85384; 85610; 85660; 85730; 86922; 87086; 93005; 93010; 99285-25; C9803-CS; G0378; P9058; U0003; U0005

== ENCOUNTER 2022-09-09 20:16 | Inpatient (IN) | payer BC, OTHER ==
[2022-09-09 20:23] VITALS: BMI 29.7
[2022-09-09 21:45] LABS: BASO % 0.6 % (0-2.0); EOS % 2.8 % (0-4.5); HEMATOCRIT 19.8 % (32.4-45.2); LYMPH % 26.9 % (8-40); MCH 20.2 pg (25.7-33.7); MCHC 31.3 g/dl (32.0-36.0); MEAN CELL VOLUME 64.7 fl (80-96); MEAN PLT VOLUME 7.8 fl (7.5-11.1); MONO % 4.5 % (3.8-10.2); NEUT % 65.2 % (42.8-82.8); PLATELET COUNT 334 10^3/uL (134-434); RBC 3.06 M/mm3 (3.60-5.2); RDW 22.1 % (11.6-15.6); WHITE BLOOD COUNT 8.4 K/mm3 (4.0-10.0)
[2022-09-09 21:54] LABS: INR 1.01 (0.83-1.09); PROTHROMBIN TIME (PATIENT) 11.7 SEC (9.7-13.0)
[2022-09-09 21:55] LABS: HEMOGLOBIN 6.2 GM/dL (10.7-15.3)
[2022-09-09 21:56] LABS: ACTIVATED PTT 30.7 SECONDS (25.2-36.5)
[2022-09-09 22:11] LABS: POTASSIUM 4.2 mmol/L (3.5-5.1)
[2022-09-09 22:13] LABS: CALCIUM 8.2 mg/dL (8.5-10.1)
[2022-09-09 22:14] LABS: ALBUMIN 3.3 g/dl (3.4-5.0); BLOOD UREA NITROGEN 10.8 mg/dL (7-18)
[2022-09-09 22:17] LABS: CREATININE 0.9 mg/dL (0.55-1.3)
[2022-09-09 22:18] LABS: BILIRUBIN,TOTAL 0.3 mg/dL (0.2-1); TOT PROT 6.7 g/dl (6.4-8.2)
[2022-09-09 22:48] LABS: ANISOCYTOSIS 2+; MACROCYTOSIS 0; TEAR DROP CELLS 1+
[2022-09-10] MEDS ORDERED: SODIUM CHLORIDE 1,000 ML IV STA ×3 (00:29→07:40)
[2022-09-10 05:47] LABS: HEMATOCRIT 19.5 % (32.4-45.2); MCH 21.3 pg (25.7-33.7); MCHC 31.2 g/dl (32.0-36.0); MEAN CELL VOLUME 68.3 fl (80-96); MEAN PLT VOLUME 8.5 fl (7.5-11.1); PLATELET COUNT 238 10^3/uL (134-434); RBC 2.86 M/mm3 (3.60-5.2); RDW 23.2 % (11.6-15.6); WHITE BLOOD COUNT 9.7 K/mm3 (4.0-10.0)
[2022-09-10 05:54] LABS: HEMOGLOBIN 6.1 GM/dL (10.7-15.3)
[2022-09-10 06:07] LABS: CALCIUM 7.6 mg/dL (8.5-10.1); CHLORIDE 112 mmol/L (98-107); SODIUM 141 mmol/L (136-145)
[2022-09-10 06:08] LABS: ALBUMIN 2.7 g/dl (3.4-5.0); ANION GAP 5 MMOL/L (8-16); BLOOD UREA NITROGEN 11.9 mg/dL (7-18); CO2 24 mmol/L (21-32); GLUCOSE,RANDOM 109 mg/dL (74-106)
[2022-09-10 06:11] LABS: CREATININE 0.8 mg/dL (0.55-1.3); SGOT/AST 8 U/L (15-37); SGPT/ALT 10 U/L (13-61)
[2022-09-10 06:13] LABS: BILIRUBIN,TOTAL < 0.1 mg/dL (0.2-1); TOT PROT 5.3 g/dl (6.4-8.2)
[2022-09-10 06:14] LABS: ALK PHOS 57 U/L (45-117)
[2022-09-10 08:35] VITALS: RESP 18
[2022-09-10] MEDS ORDERED: FERROUS SO4 325 MG TABLET (FP) ONE (08:41)
[2022-09-10] MEDS: FERROUS SO4 325 MG TABLET (FP) PO SCH (08:54)
[2022-09-10] MEDS ORDERED: IRON SUCROSE INJECTION 300 MG in SODIUM CHLORIDE 235 ML IVPB ONE (09:00)
[2022-09-10] MEDS ORDERED: NORETHINDRONE E ESTRADIOL IRON PO SCH (10:00)
[2022-09-10 13:41] LABS: BASO % 0.5 % (0-2.0); EOS % 3.4 % (0-4.5); HEMATOCRIT 21.8 % (32.4-45.2); LYMPH % 20.2 % (8-40); MCH 22.1 pg (25.7-33.7); MCHC 31.3 g/dl (32.0-36.0); MEAN CELL VOLUME 70.7 fl (80-96); MEAN PLT VOLUME 8.7 fl (7.5-11.1); MONO % 3.8 % (3.8-10.2); NEUT % 72.1 % (42.8-82.8); PLATELET COUNT 230 10^3/uL (134-434); RBC 3.08 M/mm3 (3.60-5.2); RDW 24.8 % (11.6-15.6)
[2022-09-10 13:54] LABS: HEMOGLOBIN 6.8 GM/dL (10.7-15.3)
[2022-09-10 21:11] LABS: HEMATOCRIT 25.4 % (32.4-45.2); HEMOGLOBIN 8.4 GM/dL (10.7-15.3); MCH 23.5 pg (25.7-33.7); MCHC 32.9 g/dl (32.0-36.0); MEAN CELL VOLUME 71.3 fl (80-96); PLATELET COUNT 259 10^3/uL (134-434); RBC 3.57 M/mm3 (3.60-5.2); RDW 25.8 % (11.6-15.6); WHITE BLOOD COUNT 10.4 K/mm3 (4.0-10.0)
[2022-09-10] MEDS ORDERED: SIMETHICONE 80 MG TAB.CHEW (FP) PO PRN (23:36)
[2022-09-11 08:27] LABS: BASO % 0.4 % (0-2.0); EOS % 3.8 % (0-4.5); HEMOGLOBIN 8.1 GM/dL (10.7-15.3); MCH 23.1 pg (25.7-33.7); MCHC 32.2 g/dl (32.0-36.0); MEAN CELL VOLUME 71.7 fl (80-96); MEAN PLT VOLUME 8.4 fl (7.5-11.1); MONO % 4.8 % (3.8-10.2); PLATELET COUNT 240 10^3/uL (134-434); RBC 3.49 M/mm3 (3.60-5.2); RDW 26.3 % (11.6-15.6); WHITE BLOOD COUNT 9.6 K/mm3 (4.0-10.0)
[2022-09-11 08:48] LABS: POTASSIUM 4.1 mmol/L (3.5-5.1)
[2022-09-11 08:59] LABS: CALCIUM 8.3 mg/dL (8.5-10.1)
[2022-09-11 09:00] LABS: ALBUMIN 2.8 g/dl (3.4-5.0); BLOOD UREA NITROGEN 6.1 mg/dL (7-18)
[2022-09-11 09:03] LABS: CREATININE 0.7 mg/dL (0.55-1.3); PHOSPHOROUS 3.5 mg/dL (2.5-4.9)
[2022-09-11 09:04] LABS: BILIRUBIN,TOTAL 0.3 mg/dL (0.2-1); TOT PROT 5.5 g/dl (6.4-8.2)
[2022-09-11] MEDS: FERROUS SO4 325 MG TABLET (FP) PO SCH (09:45)
[2022-09-11] MEDS ORDERED: IRON SUCROSE INJECTION 100 MG in SODIUM CHLORIDE 95 ML IVPB ONE (10:00)
[2022-09-11 12:06] VITALS: BP 116/67; PULSE 69; TEMP 98.4
== END 2022-09-11 13:29 | disposition home or self-care (01) | DRG 812 ==
LOC: JER 20:16 → JERBED 22:03 → J7W 09-10 09:40
PROVIDERS: ADMIT Internal Medicine; ATTEND Internal Medicine
PROC: 30233N1 Transfusion of Nonautologous Red Blood Cells into Peripheral Vein, Percutaneous Approach (ICD-10-PCS; principal; 2022-09-09)
DX: D64.9 Anemia, unspecified (principal); D25.9 Leiomyoma of uterus, unspecified; N92.1 Excessive and frequent menstruation with irregular cycle; D62 Acute posthemorrhagic anemia
CPT/HCPCS: 36415; 36430; 80053; 83735; 84100; 84702; 85025; 85027; 85610; 85730; 86850; 86870; 86900; 86901; 86902; 86922; 93005; 93010; 99285-25; J1756; P9058